=== PATIENT | female | born 1990 | race Caucasian/White ===

== ENCOUNTER 2024-10-28 22:30 | Outpatient (CLI) | payer OTHER ==
[~2024-10-28] VITALS: Ht 165.1 cm; Wt 140.6 kg
[2024-10-28 22:03] VITALS: BP 91/54
[2024-10-28] MEDS ORDERED: CHILDREN'S ASPI81 MG (22:38)
[2024-10-28] MEDS ORDERED: PRENATAL TABLE1 EAC1 (22:38)
[2024-10-28] MEDS ORDERED: FOLIC ACID20 MG (22:38)
[2024-10-28] MEDS ORDERED: LABETALOL HCL100 MG (22:39)
[2024-10-28] MEDS ORDERED: HUMULIN N100 UNIT/2 SUBCUTANEO (22:40)
[2024-10-28] MEDS ORDERED: LABETALOL HCL100 MG PO (22:41)
[2024-10-28] MEDS ORDERED: RINGERS SOLUTION,LACTATED 1,000 ML IV SCH (22:45)
[2024-10-28 23:18] LABS: BASO % 0.3 % (0.1-1.2); EOS # 0.27 (0.04-0.54); EOS % 2.7 % (0.7-7.0); LYMPH # 1.99 (1.18-3.74); LYMPH % 20.1 % (19.3-53.1); MEAN PLATELET VOLUME 10.40 fl (9.4-12.4); MONO # 0.86 (0.24-0.82); MONO % 8.7 % (4.7-12.5); NEUT # 6.73 (1.56-6.13); NEUT % 67.8 % (34.0-71.1); RED CELL DISTRIBUTION WIDTH 14.5 % (11.6-14.4)
[2024-10-28 23:19] LABS: URINE APPEARANCE Clear; URINE BILIRRUBIN Negative (NEGATIVE); URINE BLOOD Trace; URINE COLOR Yellow; URINE GLUCOSE Negative (NEGATIVE); URINE KETONE Negative (NEGATIVE); URINE LEUKOCYTE Negative; URINE NITRATE Negative; URINE UROBILINOGEN 0.2 E.U./dl
[2024-10-28 23:22] LABS: URINE BACTERIA 1294.8 uL (0.0-1933); URINE EPITHELIAL CELLS 10.1 uL (0.0-38.8); URINE RBC 5.8 uL (0.0-20.8); URINE WBC 34.7 uL (0.0-23.2)
[2024-10-28 23:23] VITALS: BP 95/64
[2024-10-28 23:44] LABS: URINE CAST 0.14 uL (0.0-1.40); URINE PROTEIN 100 (NEGATIVE)
[2024-10-29 03:00] VITALS: BP 119/75
[2024-10-29 07:20] VITALS: BP 117/76
[2024-10-29] MEDS ORDERED: LEVOTHYROXINE SODIUM 137 MCG TABLET PO SCH (07:45)
[2024-10-29] MEDS ORDERED: LABETALOL HCL 100 MG TABLET PO SCH (09:00)
[2024-10-29 11:30] VITALS: BP 98/62
== END 2024-10-29 11:30 | disposition home or self-care (01) ==
LOC: OBS/DEL 22:30
PROVIDERS: Obstetrics & Gynecology; ATTEND Obstetrics & Gynecology
DX: O36.8130 Decreased fetal movements, third trimester, not applicable or unspecified (principal); Z3A.31 31 weeks gestation of pregnancy